=== PATIENT | male | born 1935 | race Two or more races ===

== ENCOUNTER 2021-01-13 05:57 | Day surgery (SDC) | payer OTHER | END 2021-01-13 14:00 | disposition home or self-care (01) | LOC: AMB-ENDOS 05:57 | PROVIDERS: ATTEND Surgery | DX: C18.7 Malignant neoplasm of sigmoid colon (principal); Z20.822 Contact with and (suspected) exposure to COVID-19 ==

== ENCOUNTER 2021-03-16 10:00 | Inpatient (IN) | payer OTHER ==
[~2021-03-16] VITALS: Ht 157.5 cm; Wt 51.3 kg
[2021-03-16] MEDS ORDERED: TOPROL XL50 MG PO (14:23)
[2021-03-16] MEDS ORDERED: LIPITOR20 MG PO (14:23)
[2021-03-16] MEDS ORDERED: COZAAR100 MG PO (14:23)
[2021-03-16] MEDS ORDERED: ZYLOPRIM100 M1 PO (14:23)
[2021-03-16] MEDS ORDERED: VITAL-D RX TAB1 EACH PO (14:24)
[2021-03-16] MEDS ORDERED: CHILDREN'S ASPI81 MG PO (14:24)
[2021-03-16] MEDS ORDERED: PLAVIX75 MG PO (14:24)
[2021-03-23] MEDS ORDERED: VITAMIN D3250 MC1 (10:41)
[2021-04-03] MEDS ORDERED: HYOSCYAMINE0.125 M1 SL (08:10)
[2021-04-03] MEDS ORDERED: INTEGRA F CAPS1 EACH PO (08:11)
[2021-04-03] MEDS ORDERED: PYRIDOXINE HCL100 MG PO (08:11)
[2021-04-03] MEDS ORDERED: Neurin-Sl Tablet Sl SL (08:11)
[2021-04-03] MEDS ORDERED: INTESTINEX680 M1 PO (08:12)
== END 2021-04-03 08:47 | disposition home or self-care (01) | DRG 331 ==
LOC: O/R 03-23 07:42 → SURH 03-23 07:42
PROVIDERS: ADMIT Surgery; ATTEND Surgery
PROC: 07TB4ZZ Resection of Mesenteric Lymphatic, Percutaneous Endoscopic Approach (ICD-10-PCS; 2021-03-23)
PROC: 0DBN4ZZ Excision of Sigmoid Colon, Percutaneous Endoscopic Approach (ICD-10-PCS; principal; 2021-03-23 13:45)
PROC: 3E0F7SF Introduction of Other Gas into Respiratory Tract, Via Natural or Artificial Opening (ICD-10-PCS; 2021-03-28)
PROC: 0DJD8ZZ Inspection of Lower Intestinal Tract, Via Natural or Artificial Opening Endoscopic (ICD-10-PCS; 2021-03-31)
PROC: [UNRECOGNIZED PROCEDURE] (2021-04-01)
DX: C18.7 Malignant neoplasm of sigmoid colon (principal); R59.0 Localized enlarged lymph nodes; I10 Essential (primary) hypertension

== ENCOUNTER 2022-12-15 08:20 | Day surgery (SDC) | payer OTHER ==
[~2022-12-15 08:20] MED LIST: CHILDREN'S ASPI81 MG PO; COZAAR100 MG PO; HYOSCYAMINE0.125 M1 SL; INTEGRA F CAPS1 EACH PO; INTESTINEX680 M1 PO; LIPITOR20 MG PO; Neurin-Sl Tablet Sl SL; PLAVIX75 MG PO; PYRIDOXINE HCL100 MG PO; TOPROL XL50 MG PO; VITAL-D RX TAB1 EACH PO; VITAMIN D3250 MC1; ZYLOPRIM100 M1 PO
[2022-12-15] MEDS ORDERED: TRAM1TAB98 PO (19:12)
[2022-12-15] MEDS ORDERED: POLY119PG PO (19:12)
== END 2022-12-15 22:25 | disposition home or self-care (01) ==
LOC: CIR.AMB 08:20
PROVIDERS: ATTEND Surgery
DX: K40.90 Unilateral inguinal hernia, without obstruction or gangrene, not specified as recurrent (principal); I10 Essential (primary) hypertension; Z20.822 Contact with and (suspected) exposure to COVID-19